=== PATIENT | female | born 1935 ===

== ENCOUNTER 2018-03-02 21:00 | Emergency (ER) | payer MEDICARE, BC, OTHER ==
[2018-03-02 21:29] VITALS: BP 138/66
--- NOTE | 2018-03-02 22:31 | EDM.PDOC ---
ED HPI GENERAL MEDICAL PROBLEM - General Chief Complaint: Genitourinary Problem Stated Complaint: UTI Time Seen by Provider: 03/02/18 22:15 - History of Present Illness INITIAL COMMENTS - FREE TEXT/NARRATIVE: 82 yo presents with concerns of possible urinary infection. She reports nearly two weeks now of dysuria and frequency as well as intermittent intense vaginitis. She denies fever. She reports history of occasional UTI. She is being treated for what sounds to be vaginal atrophy by a urology however the patient is unsure about this. No flank pain. No confusion. No dizziness. - Related Data Allergies Allergy/AdvReac Type Severity Reaction Status Date / Time Penicillins Allergy Cannot Verified 03/02/18 22:01 Remember flu shot Allergy Cannot Uncoded 03/02/18 22:02 Remember Home Meds: Home Meds Brimonidine Tartrate/Timolol [Combigan 0.2%-0.5% Eye Drops] 03/02/18 [History] Fluticasone Propionate [Flovent HFA 220 MCG] 03/02/18 [History] Furosemide 03/02/18 [History] Latanoprost 03/02/18 [History] Levalbuterol Tartrate [Xopenex HFA] 03/02/18 [History] Levothyroxine 03/02/18 [History] Past Medical History HEENT History: Reports: Glaucoma Musculoskeletal History: Reports: Fracture - Past Surgical History HEENT Surgical History: Reports: Adenoidectomy, Tonsillectomy GI Surgical History: Reports: Appendectomy Musculoskeletal Surgical History: Reports: Hip Replacement Social & Family History - Tobacco Use Smoking Status *Q: Never Smoker ED ROS GENERAL - Review of Systems Review Of Systems: See Below Constitutional: Reports: No Symptoms HEENT: Reports: No Symptoms Respiratory: Reports: No Symptoms Cardiovascular: Reports: No Symptoms Endocrine: Reports: No Symptoms GI/Abdominal: Reports: No Symptoms : Reports: Dysuria, Frequency, Incontinence Musculoskeletal: Reports: No Symptoms Skin: Reports: No Symptoms Neurological: Reports: No Symptoms Psychiatric: Reports: No Symptoms Hematologic/Lymphatic: Reports: No Symptoms Immunologic: Reports: No Symptoms ED EXAM, RENAL/ - Physical Exam Exam: See Below Exam Limited By: No Limitations General Appearance: Alert, WD/WN Ears: Normal External Exam Throat/Mouth: Normal Inspection Head: Atraumatic, Normocephalic Neck: Normal Inspection Respiratory/Chest: No Respiratory Distress, Normal Breath Sounds Cardiovascular: Regular Rate, Rhythm GI/Abdominal: Normal Bowel Sounds (Female) Exam: Normal External Exam. No: Vaginal Discharge Back Exam: Normal Inspection Extremities: Normal Inspection, Mottled Neurological: Alert, Oriented, No Motor/Sensory Deficits Psychiatric: Normal Affect, Normal Mood Skin Exam: Warm, Dry Course - Vital Signs Last Recorded V/S: Last Vital Signs Temp 35.9 C 03/02/18 22:11 Pulse 62 03/02/18 22:11 Resp 16 03/02/18 22:11 BP 138/66 03/02/18 22:11 Pulse Ox 96 03/02/18 22:11 - Orders/Labs/Meds Orders: Active Orders 24 hr Category Date Time Status UA W/MICROSCOPIC [URIN] Urgent Lab 03/02/18 21:51 Ordered Labs: Laboratory Tests 03/02/18 Range/Units 21:51 Urine Color Yellow Urine Appearance Clear Urine pH 5.0 (4.5-8.0) Ur Specific [place] 1.010 (1.008-1.030) Urine Protein Negative (NEGATIVE) mg/dL Urine Glucose (UA) Normal (NEGATIVE) mg/dL Urine Ketones Negative (NEGATIVE) mg/dL Urine Occult Blood Negative (NEGATIVE) Urine Nitrite Negative (NEGATIVE) Urine Bilirubin Negative (NEGATIVE) Urine Urobilinogen Normal (NORMAL) mg/dL Ur Leukocyte Esterase Negative (NEGATIVE) Urine RBC 0-5 (0-5) Urine WBC 0-5 (0-5) Ur Epithelial Cells Few Amorphous Sediment Few Urine Bacteria Rare Urine Mucus Few - Re-Assessments/Exams Free Text/Narrative Re-Assessment/Exam: 82 yo presents with concerns of dysuria, vaginal pruritis. Otherwise well appearing Clean UA Visiting from out of town, reports she has seen a urologist in the past for what sounds to be atrophic vaginitis. She is going to follow up with PCP to verify what this medication is and further work up 03/02/18 22:45 Departure - Departure Time of Disposition: 22:42 Disposition: Home, Self-Care 01 Condition: Good Clinical Impression: Vaginitis - Discharge Information *PRESCRIPTION DRUG MONITORING PROGRAM REVIEWED*: No *COPY OF PRESCRIPTION DRUG MONITORING REPORT IN PATIENT CASPER: No Referrals: PCP,None [Primary Care Provider] - Forms: ED Department Discharge Additional Instructions: Your urine has no signs of infection and you symptoms seem most consistent with vaginitis. We recommend that you see your primary doctor this week to see if the cream you have been prescribed is appropriate for this. You may choose to do further work up of your symptoms at this time.
== END 2018-03-02 23:01 | disposition home or self-care (01) ==
LOC: JP.ED 21:00
DX: N76.0 Acute vaginitis (principal); Z88.0 Allergy status to penicillin; Z88.7 Allergy status to serum and vaccine; Z79.899 Other long term (current) drug therapy
CPT/HCPCS: 81001; 99284